=== PATIENT | female | born 1955 | race Caucasian/White ===

== ENCOUNTER 2016-09-16 10:22 | Emergency (ER) | payer BC, OTHER ==
[~2016-09-16] VITALS: Ht 154.9 cm; Wt 94.0 kg
[2016-09-16] MEDS ORDERED: LIDOCAINE/EPINEPHRINE 1%-1:100,000 (XYLOCAINE) 20ML VIAL TOP ONE (11:00)
[2016-09-16] MEDS ORDERED: LIDOCAINE/EPINEPHRINE 1% 1:100,000 (XYLOCAINE) 30 ML VIAL INJ ONE (11:05)
[2016-09-16] MEDS ORDERED: VANCOMYCIN 1,000 MG in SODIUM CHLORIDE 250 ML IV ONE (11:45)
[2016-09-16] MEDS ORDERED: SODIUM CHLORIDE FLUSH 10 ML SYR IV PRN (11:45)
[2016-09-16 12:16] LABS: BASOPHILS % (AUTO) 0 % (0-2); EOSINOPHILS # (AUTO) 0.1 10^3uL; EOSINOPHILS % (AUTO) 1 % (0-4); LYMPHOCYTES # (AUTO) 2.1 X10^3; MEAN CORPUSCULAR HEMOGLOBIN 27.5 PG (26.0-34.0); MEAN CORPUSCULAR VOLUME 87 FL (80-100); MEAN PLATELET VOLUME 10.9 FL (6.0-9.5); MONOCYTES # (AUTO) 1.1 X10^3; MONOCYTES % (AUTO) 9 % (3-11); NEUTROPHILS # (AUTO) 8.9 X10^3; NEUTROPHILS % (AUTO) 73 % (51-67); PLATELET COUNT 229 10^3uL (150-450); WHITE BLOOD COUNT 12.25 10^3uL (4.0-11.0)
[2016-09-16 12:17] LABS: MEAN CORPUSCULAR HGB CONC 31.6 g/dL (31.0-37.0)
[2016-09-16 12:25] LABS: ANION GAP 15.8 MEQ/L (3-15); CALCULATED IONIZED CALCIUM 3.9 mg/dL (3.8-4.6); TOTAL PROTEIN 7.7 g/dL (6.4-8.5)
--- NOTE | 2016-09-16 12:32 | NUR ---
diabetic tray ordered
--- NOTE | 2016-09-16 13:09 | NUR ---
[facility] home for awhile. cl
--- NOTE | 2016-09-16 14:46 | NUR ---
ATTEMPT TO CALL DR CARTY RE PT CREATININE LEVEL. DR CARTY ABLE TO GIVE RECENT LAB RESULTS. DR MCLEAN CALLED TO SEE WHAT LAB TREND PT HAS HAD. CL
--- NOTE | 2016-09-16 15:26 | NUR ---
PH CALL TO DR CARTY FOR 2ND TIME FOR DR OCAMPO TO SPEAK WITH DR CARTY. WHILE HOLDING DR MCLEAN CALLS TO TALK WITH DR OCAMPO. CL
--- NOTE | 2016-09-16 15:29 | NUR ---
DR CARTY'S OFC WILL TEXT HIM TO CONTACT US & THEN DR OCAMPO STATES NOT NECESSARY ANY LONGER. CL
[2016-09-16 19:05] VITALS: BP 142/62
== END 2016-09-16 15:51 | disposition home or self-care (01) ==
LOC: ED 10:31
DX: N61.1 Abscess of the breast and nipple (principal)
CPT/HCPCS: 10060; 36415; 80053; 85025; 87040; 87070; 87075; 87147; 87186; 96361; 96365; 96366; 99284; J3370; J7030; J7050; 10140; 99283